=== PATIENT | female | born 1995 | race Caucasian/White ===

== ENCOUNTER 2016-05-04 14:53 | Emergency (ER) | payer OTHER ==
[~2016-05-04] VITALS: Ht 170.2 cm; Wt 82.5 kg
[~2016-05-04 14:53] MED LIST: ATIVAN0.5 MG PO; BENADRYL25 MG PO; BUSPAR10 MG PO; BUSPIRONE HCL10 MG PO; BUSPIRONE HCL5 MG PO; CEPHALEXIN500 MG PO; CLINDAMYCIN HC300 MG PO; KLONOPIN0.5 M1 PO; LAMOTRIGINE100 MG PO; LAMOTRIGINE150 MG PO; LO LOESTRIN FE1 EACH PO; MICROGESTIN FE1 EACH PO; NO HOME MEDS; PREDNISONE10 MG PO; PREDNISONE20 MG PO; ZIPRASIDONE HCL80 MG PO
[2016-05-04 17:37] LABS: HEMATOCRIT 39.9 % (36.0-46.0); MCH 30.4 PG (29.0-34.0); MCHC 34.3 G/DL (30.0-36.0); MCV 88.7 FL (83-99); MEAN PLAT.VOLUME 11.1 uM^3 (9.5-12.4); PLATELET COUNT 305 K/uL (156-360); RBC DIS.WIDTH-CV 11.8 % (11.8-14.6); RBC DIS.WIDTH-SD 37.8 % (39-53)
[2016-05-04 18:04] LABS: SERUM ETHYL ALCOHOL < 10 mg/dL
[2016-05-04 18:16] LABS: QUANTITATIVE HCG < 4.0 MIU/ML
[2016-05-04 18:27] VITALS: BP 136/89
== END 2016-05-04 18:28 | disposition home or self-care (01) ==
LOC: EME → EDBD 14:53 → EME 18:28
PROVIDERS: Emergency Medicine
DX: F84.0 Autistic disorder (principal); F31.9 Bipolar disorder, unspecified
CPT/HCPCS: 81003; 84702; 85027; 90839; 99281; 99285; G0480

== ENCOUNTER 2016-07-07 21:09 | Emergency (ER) | payer OTHER ==
[~2016-07-07] VITALS: Ht 170.2 cm; Wt 82.5 kg
[2016-07-07 22:45] LABS: AMPHETAMINE NEGATIVE (500 ng/mL); BARBITURATES NEGATIVE (200 ng/mL); BENZODIAZEPINES NEGATIVE (150 ng/mL); COCAINE NEGATIVE (150 ng/mL); INTERNAL CONTROLS VALID? YES; METHADONE NEGATIVE (200 ng/mL); METHAMPHETAMINE NEGATIVE (500 ng/mL); OPIATES (MORPHINE) NEGATIVE (100 ng/mL); OXYCODONE NEGATIVE (100 ng/mL); PHENCYCLIDINE NEGATIVE (25 ng/mL); PROPOXYPHENE NEGATIVE (300 ng/mL); THC CANNABINOIDS NEGATIVE (50 ng/mL); TRICYCLIC ANTIDEPRESSANTS NEGATIVE (300 ng/mL)
[2016-07-07 22:54] LABS: BASOPHIL COUNT 0.1 K/uL (0-0.1); EOSINOPHIL (%) 0.7 % (0-5); EOSINOPHIL COUNT 0.1 K/uL (0-0.3); IMMATURE GRANULOCYTE (%) 1.2 % (0.0-0.7); IMMATURE GRANULOCYTE COUNT 0.2 K/uL; INSTRUMENT ABS NEUTROPHIL CT 7.8 K/uL; LYMPHOCYTE COUNT 4.5 K/uL (1.0-2.8); MCH 29.1 PG (29.0-34.0); MCHC 33.2 G/DL (30.0-36.0); MCV 87.8 FL (83-99); MEAN PLAT.VOLUME 10.8 uM^3 (9.5-12.4); MONOCYTE (%) 8.8 % (3-12); MONOCYTE COUNT 1.2 K/uL (0-0.8); NEUTROPHIL (%) 56.5 % (45-76); NEUTROPHIL COUNT 7.8 K/uL (1.8-6.4); PLATELET COUNT 320 K/uL (156-360); RBC DIS.WIDTH-SD 38.6 % (39-53); RED BLOOD COUNT 4.67 M/uL (3.80-5.20); WHITE BLOOD COUNT 13.8 K/uL (4.1-10.2)
[2016-07-07 23:04] LABS: CHLORIDE 105 mEq/L (99-109); SODIUM 140 mEq/L (136-147)
[2016-07-07 23:07] LABS: GLUCOSE 95 mg/dL (70-99)
[2016-07-07 23:08] LABS: ANION GAP 13 MEQ/L (2-14)
[2016-07-07 23:09] LABS: TOTAL BILIRUBIN 0.2 mg/dL (0.0-1.0)
[2016-07-07 23:10] LABS: ALKALINE PHOSPHATASE 77 IU/L (3-129); SERUM ETHYL ALCOHOL < 10 mg/dL
[2016-07-07 23:11] LABS: GFR ESTIMATE (CALCULATED) > 59 mL/min/
[2016-07-07 23:12] LABS: UREA NITROGEN (BUN) 14 mg/dL (9-23)
[2016-07-07 23:23] LABS: QUANTITATIVE HCG < 4.0 MIU/ML
[2016-07-08 18:42] VITALS: BP 138/66
== END 2016-07-08 18:50 ==
LOC: EME 21:09
PROVIDERS: Emergency Medicine
DX: F84.0 Autistic disorder (principal); R46.89 Other symptoms and signs involving appearance and behavior; F31.9 Bipolar disorder, unspecified; F42.9 Obsessive-compulsive disorder, unspecified; F41.9 Anxiety disorder, unspecified
CPT/HCPCS: 74020; 80053; 84702; 85025; 90837; 90839; 99281; 99285; G0480

== ENCOUNTER 2016-08-27 21:27 | Emergency (ER) | payer OTHER ==
[~2016-08-27] VITALS: Ht 157.5 cm; Wt 108.0 kg
[2016-08-27 23:20] LABS: BASOPHIL COUNT 0.1 K/uL (0-0.1); EOSINOPHIL COUNT 0.1 K/uL (0-0.3); HEMATOCRIT 39.7 % (36.0-46.0); IMMATURE GRANULOCYTE COUNT 0.1 K/uL; INSTRUMENT ABS NEUTROPHIL CT 5.7 K/uL; LYMPHOCYTE COUNT 3.9 K/uL (1.0-2.8); MCH 29.1 PG (29.0-34.0); MCHC 32.7 G/DL (30.0-36.0); MCV 88.8 FL (83-99); MONOCYTE (%) 9.2 % (3-12); NEUTROPHIL (%) 52.4 % (45-76); NEUTROPHIL COUNT 5.7 K/uL (1.8-6.4); PLATELET COUNT 289 K/uL (156-360); RBC DIS.WIDTH-CV 12.1 % (11.8-14.6); RBC DIS.WIDTH-SD 39.3 % (39-53); RED BLOOD COUNT 4.47 M/uL (3.80-5.20); WHITE BLOOD COUNT 10.9 K/uL (4.1-10.2)
[2016-08-27 23:33] LABS: CHLORIDE 106 mEq/L (99-109); POTASSIUM 3.9 mEq/L (3.7-5.4); SODIUM 140 mEq/L (136-147)
[2016-08-27 23:35] LABS: GLUCOSE 106 mg/dL (70-99)
[2016-08-27 23:36] LABS: ANION GAP 12 MEQ/L (2-14)
[2016-08-27 23:38] LABS: SERUM ETHYL ALCOHOL < 10 mg/dL
[2016-08-27 23:39] LABS: GFR ESTIMATE (CALCULATED) > 59 mL/min/
[2016-08-27 23:40] LABS: UREA NITROGEN (BUN) 11 mg/dL (9-23)
[2016-08-28 13:33] VITALS: BP 133/80
== END 2016-08-28 13:40 ==
LOC: EME → EDBD 21:27 → EME 21:27
PROVIDERS: Emergency Medicine
DX: F31.9 Bipolar disorder, unspecified (principal); R45.851 Suicidal ideations; F84.0 Autistic disorder
CPT/HCPCS: 73130; 80048; 85025; 90837; 99281; 99284; G0480; J2250; J2270

== ENCOUNTER 2016-08-31 18:17 | Inpatient (IN) | payer OTHER ==
[~2016-08-31] VITALS: Ht 170.2 cm; Wt 103.2 kg
[2016-08-31] MEDS ORDERED: LATUDA120 MG PO (22:05)
[2016-08-31] MEDS ORDERED: BUSPAR5 MG PO ×2 (22:05)
[2016-08-31] MEDS ORDERED: DIVALPROEX SOD250 MG PO (22:05)
[2016-08-31] MEDS ORDERED: MICROGESTIN FE1 EACH PO (22:06)
[2016-09-01 15:01] VITALS: BP 112/70
== END 2016-09-01 14:55 | disposition home or self-care (01) | DRG 884 ==
LOC: EME 18:17 → EDOF 09-01 12:48
DX: F84.0 Autistic disorder (principal); F31.9 Bipolar disorder, unspecified
CPT/HCPCS: 90832; 90839; 99281; 99285; J1630; J2060

== ENCOUNTER 2016-10-02 17:30 | Emergency (ER) | payer OTHER ==
[~2016-10-02] VITALS: Ht 160 cm; Wt 106.6 kg
[~2016-10-02 17:30] MED LIST changes: +BUSPAR5 MG PO; +DIVALPROEX SOD250 MG PO; +LATUDA120 MG PO
[2016-10-02 18:44] LABS: MCH 29.3 PG (29.0-34.0); MCHC 33.3 G/DL (30.0-36.0); MCV 88.1 FL (83-99); MEAN PLAT.VOLUME 10.8 uM^3 (9.5-12.4); PLATELET COUNT 288 K/uL (156-360); RBC DIS.WIDTH-CV 11.9 % (11.8-14.6); RBC DIS.WIDTH-SD 38.2 % (39-53); RED BLOOD COUNT 4.54 M/uL (3.80-5.20); WHITE BLOOD COUNT 16.1 K/uL (4.1-10.2)
[2016-10-02 18:55] LABS: CHLORIDE 107 mEq/L (99-109); POTASSIUM 4.1 mEq/L (3.7-5.4); SODIUM 140 mEq/L (136-147)
[2016-10-02 18:57] LABS: GLUCOSE 96 mg/dL (70-99)
[2016-10-02 18:59] LABS: ANION GAP 9 MEQ/L (2-14); TOTAL BILIRUBIN 0.3 mg/dL (0.0-1.0)
[2016-10-02 19:01] LABS: ALKALINE PHOSPHATASE 88 IU/L (3-129); GFR ESTIMATE (CALCULATED) > 59 mL/min/
[2016-10-02 19:02] LABS: UREA NITROGEN (BUN) 11 mg/dL (9-23)
[2016-10-02 19:05] LABS: LIPASE 105 U/L (1.0-51.0)
[2016-10-02 19:11] LABS: QUANTITATIVE HCG < 4.0 MIU/ML
[2016-10-02 20:39] LABS: ADD MIUA? YES; BILIRUBIN NEGATIVE; BLOOD NEGATIVE; COLOR YELLOW ((YELLOW)); GLUCOSE (STRIP) NEGATIVE; KETONES 5; LEUKOCYTES NEGATIVE; NITRITE NEGATIVE; PROTEIN (STRIP) NEGATIVE; UROBILINOGEN 0.2 MG/DL (0.2-1.0)
[2016-10-02] MEDS ORDERED: MIRALAX17 GM PO (21:17)
[2016-10-02 21:18] LABS: BACTERIA NONE SEEN /HPF; EPITHELIAL CELLS 1+ /HPF; MUCUS 2+ /LPF; RED BLOOD CELLS 0-5 /HPF (0-5); SPECIFIC GRAVITY 1.057 (1.000-1.030); UCUL ADDED? NO; WHITE BLOOD CELLS 0-5 /HPF (0-5)
[2016-10-02 21:29] VITALS: BP 119/70
== END 2016-10-02 21:32 | disposition home or self-care (01) ==
LOC: EME 17:30
PROVIDERS: Emergency Medicine
DX: K59.00 Constipation, unspecified (principal); R51 Headache; F84.0 Autistic disorder
CPT/HCPCS: 70450; 74177; 80053; 81003; 83690; 84702; 85027; 99281; 99285; J2060; J7030

== ENCOUNTER 2016-10-03 16:38 | Emergency (ER) | payer OTHER ==
[~2016-10-03] VITALS: Ht 167.6 cm
[~2016-10-03 16:38] MED LIST changes: +MIRALAX17 GM PO
[2016-10-03 18:28] LABS: HEMATOCRIT 36.6 % (36.0-46.0); MCH 29.1 PG (29.0-34.0); MCHC 32.8 G/DL (30.0-36.0); MCV 88.8 FL (83-99); MEAN PLAT.VOLUME 11.2 uM^3 (9.5-12.4); PLATELET COUNT 238 K/uL (156-360); RBC DIS.WIDTH-CV 12.1 % (11.8-14.6); RBC DIS.WIDTH-SD 39.3 % (39-53); RED BLOOD COUNT 4.12 M/uL (3.80-5.20); WHITE BLOOD COUNT 10.2 K/uL (4.1-10.2)
[2016-10-03 18:35] LABS: CHLORIDE 106 mEq/L (99-109); POTASSIUM 3.9 mEq/L (3.7-5.4); SODIUM 140 mEq/L (136-147)
[2016-10-03 18:37] LABS: GLUCOSE 87 mg/dL (70-99)
[2016-10-03 18:38] LABS: ANION GAP 9 MEQ/L (2-14)
[2016-10-03 18:41] LABS: GFR ESTIMATE (CALCULATED) > 59 mL/min/; UREA NITROGEN (BUN) 11 mg/dL (9-23)
[2016-10-03 23:50] VITALS: BP 119/71
== END 2016-10-03 23:52 | disposition home or self-care (01) ==
LOC: EME 16:38
PROVIDERS: Emergency Medicine
DX: F84.0 Autistic disorder (principal); F31.9 Bipolar disorder, unspecified
CPT/HCPCS: 80048; 85027; 90839; 99281; 99285; J1630; J2060

== ENCOUNTER 2016-10-07 18:16 | Inpatient (IN) | payer OTHER ==
[~2016-10-07] VITALS: Ht 165.1 cm; Wt 102.5 kg
[2016-10-07 21:25] LABS: HEMATOCRIT 36.7 % (36.0-46.0); MCH 29.4 PG (29.0-34.0); MCHC 33.5 G/DL (30.0-36.0); MCV 87.6 FL (83-99); MEAN PLAT.VOLUME 11.1 uM^3 (9.5-12.4); PLATELET COUNT 244 K/uL (156-360); RBC DIS.WIDTH-SD 38.5 % (39-53); RED BLOOD COUNT 4.19 M/uL (3.80-5.20); WHITE BLOOD COUNT 11.4 K/uL (4.1-10.2)
[2016-10-07 21:35] LABS: CHLORIDE 108 mEq/L (99-109); POTASSIUM 3.9 mEq/L (3.7-5.4); SODIUM 141 mEq/L (136-147)
[2016-10-07 21:37] LABS: GLUCOSE 113 mg/dL (70-99)
[2016-10-07 21:38] LABS: ANION GAP 10 MEQ/L (2-14)
[2016-10-07 21:40] LABS: SERUM ETHYL ALCOHOL < 10 mg/dL
[2016-10-07 21:41] LABS: GFR ESTIMATE (CALCULATED) > 59 mL/min/
[2016-10-07 21:42] LABS: UREA NITROGEN (BUN) 10 mg/dL (9-23)
[2016-10-07 21:50] LABS: QUANTITATIVE HCG < 4.0 MIU/ML
[2016-10-08 17:08] LABS: ADD MEDTOX COMMENT Y; AMPHETAMINE NEGATIVE (500 ng/mL); BARBITURATES NEGATIVE (200 ng/mL); BENZODIAZEPINES PRESUMPTIVE POSITIVE (150 ng/mL); COCAINE NEGATIVE (150 ng/mL); INTERNAL CONTROLS VALID? YES; METHADONE NEGATIVE (200 ng/mL); METHAMPHETAMINE NEGATIVE (500 ng/mL); OPIATES (MORPHINE) NEGATIVE (100 ng/mL); OXYCODONE NEGATIVE (100 ng/mL); PHENCYCLIDINE NEGATIVE (25 ng/mL); PROPOXYPHENE NEGATIVE (300 ng/mL); THC CANNABINOIDS NEGATIVE (50 ng/mL); TRICYCLIC ANTIDEPRESSANTS NEGATIVE (300 ng/mL)
[2016-10-08 17:35] LABS: BENZODIAZEPINES QUANT VALUE 0 NG/ML; BENZODIAZEPINES, URINE SCREEN Negative (200 ng/mL)
[2016-10-10 00:23] VITALS: BP 101/60
[2016-10-10 07:56] VITALS: BP 129/87
[2016-10-10 15:24] VITALS: BP 124/79
[2016-10-11 15:26] VITALS: BP 115/65
[2016-10-12 07:30] VITALS: BP 109/80
[2016-10-12 16:20] VITALS: BP 117/70
[2016-10-13 07:54] VITALS: BP 136/69
[2016-10-13 15:24] VITALS: BP 111/57
[2016-10-14 15:19] VITALS: BP 118/78
[2016-10-15 15:28] VITALS: BP 125/60
[2016-10-16 07:50] VITALS: BP 116/57
[2016-10-16 15:39] VITALS: BP 118/79
[2016-10-17 07:21] VITALS: BP 104/57
[2016-10-17 15:15] VITALS: BP 99/61
[2016-10-18 10:14] VITALS: BP 101/58
[2016-10-18 16:30] VITALS: BP 126/94
[2016-10-19 10:13] VITALS: BP 116/90
[2016-10-19 15:52] VITALS: BP 141/65
[2016-10-20 10:25] VITALS: BP 104/59
[2016-10-20] MEDS ORDERED: TOPAMAX50 MG PO (11:06)
[2016-10-20] MEDS ORDERED: RISPERDAL1 MG PO (11:07)
== END 2016-10-20 13:10 | disposition home or self-care (01) | DRG 884 ==
LOC: EME 18:16 → EDOF 10-08 18:22 → EME 10-08 18:22 → 1WEST 10-09 18:22 → EDOF 10-09 18:22 → 1WEST 10-10 00:14
PROVIDERS: Emergency Medicine
DX: F84.0 Autistic disorder (principal); R45.1 Restlessness and agitation; F31.9 Bipolar disorder, unspecified; E66.01 Morbid (severe) obesity due to excess calories; Z78.1 Physical restraint status; Z79.899 Other long term (current) drug therapy; Z81.8 Family history of other mental and behavioral disorders
CPT/HCPCS: 80048; 80164; 84702; 84999; 85027; 90837; 90839; 99281; 99285; G0480; J1630; J2060; J3486

== ENCOUNTER 2017-08-20 18:35 | Inpatient (IN) | payer OTHER ==
[~2017-08-20] VITALS: Ht 154.9 cm; Wt 63.6 kg
[~2017-08-20 18:35] MED LIST changes: +RISPERDAL1 MG PO; +TOPAMAX50 MG PO
[2017-08-20 21:56] LABS: HEMATOCRIT 40.8 % (36.0-46.0); MCH 28.7 PG (29.0-34.0); MCHC 34.3 G/DL (30.0-36.0); MCV 83.8 FL (83-99); PLATELET COUNT 259 K/uL (156-360); RBC DIS.WIDTH-CV 12.9 % (11.8-14.6); RBC DIS.WIDTH-SD 39.1 % (39-53); RED BLOOD COUNT 4.87 M/uL (3.80-5.20); WHITE BLOOD COUNT 10.5 K/uL (4.1-10.2)
[2017-08-20 22:08] LABS: CHLORIDE 110 mEq/L (99-109); POTASSIUM 3.6 mEq/L (3.7-5.4); SODIUM 140 mEq/L (136-147)
[2017-08-20 22:10] LABS: GLUCOSE 118 mg/dL (70-99)
[2017-08-20 22:13] LABS: SERUM ETHYL ALCOHOL < 10 mg/dL
[2017-08-20 22:14] LABS: GFR ESTIMATE (CALCULATED) > 59 mL/min/
[2017-08-20 22:15] LABS: UREA NITROGEN (BUN) 13 mg/dL (9-23)
[2017-08-20 22:17] LABS: QUANTITATIVE HCG < 4.0 MIU/ML
[2017-08-20] MEDS ORDERED: TOPAMAX50 MG PO ×2 (22:47)
[2017-08-20] MEDS ORDERED: RISPERDAL1 MG PO (22:48)
[2017-08-20] MEDS ORDERED: TOPAMAX100 MG PO (22:48)
[2017-08-21 09:10] VITALS: BP 100/58
[2017-08-21 16:26] VITALS: BP 108/52
[2017-08-22 07:46] VITALS: BP 93/54
[2017-08-22 15:15] VITALS: BP 100/55
[2017-08-23 07:39] VITALS: BP 97/54
[2017-08-23 15:42] VITALS: BP 99/56
[2017-08-24 08:00] VITALS: BP 101/56
[2017-08-24 16:14] VITALS: BP 97/52
[2017-08-25 07:50] VITALS: BP 90/52
[2017-08-25 17:11] VITALS: BP 119/78
[2017-08-25] MEDS ORDERED: RISPERDAL2 MG PO (18:58)
[2017-08-25] MEDS ORDERED: OXCARBAZEPINE300 MG PO (18:58)
[2017-08-25] MEDS ORDERED: TOPIRAMATE25 MG PO (18:58)
== END 2017-08-25 19:00 | disposition left against medical advice (07) | DRG 885 ==
LOC: EME 18:35 → 1WEST 21:18 → EDOF 21:18 → ENRESERV 22:51 → 1WEST 23:04
PROVIDERS: Emergency Medicine
DX: F31.0 Bipolar disorder, current episode hypomanic (principal); F84.0 Autistic disorder; F63.9 Impulse disorder, unspecified; F71 Moderate intellectual disabilities
CPT/HCPCS: 80048; 81003; 84702; 85027; 90837; 97150 GO; 99281; 99285; G0480

== ENCOUNTER → 2017-11-13 | Outpatient (CLI) | payer OTHER ==
[~2017-11-13] MED LIST changes: +OXCARBAZEPINE300 MG PO; +RISPERDAL0.5 MG PO; +RISPERDAL2 MG PO; +TOPAMAX100 MG PO; +TOPIRAMATE25 MG PO
== END | disposition home or self-care (01) ==
LOC: AMB 09:30
DX: D22.5 Melanocytic nevi of trunk (principal); F79 Unspecified intellectual disabilities
CPT/HCPCS: 88305